=== PATIENT | female | born 1960 | race Caucasian/White ===

== ENCOUNTER → 2018-07-21 | Outpatient (CLI) | payer OTHER ==
--- NOTE | 2018-07-21 08:58 | US ---
EXAMINATION TYPE: US venous doppler duplex LE LT DATE OF EXAM: 07/21/2018 8:42 AM COMPARISON: NONE CLINICAL HISTORY: R10.11 Right upper quadrant pain. Left leg pain x couple weeks SIDE PERFORMED: Left TECHNIQUE: The lower extremity deep venous system is examined utilizing real time linear array sonog rolanda with graded compression, doppler sonography and color-flow sonography. VESSELS IMAGED: External Iliac Vein (EIV) Common Femoral Vein Deep Femoral Vein Greater Saphenous Vein * Femoral Vein Popliteal Vein Small Saphenous Vein * Proximal Calf Veins (* superficial vessels) Left Leg: Appears negative for DVT IMPRESSION: 1. Left lower extremity ultrasound negative for deep venous thrombosis.
--- NOTE | 2018-07-21 12:06 | CT ---
EXAMINATION TYPE: CT abdomen pelvis w con DATE OF EXAM: 07/21/2018 HISTORY: Recent diagnosis of uterine CA with total hysterectomy, pt c/o LLQ and pelvic pain, Lt leg p ain CT DLP: 1490mGycm Automated Exposure Control for Dose Reduction was Utilized. CONTRAST: CT scan of the abdomen and pelvis is performed with IV Contrast, patient injected with 100 mL of Isov ue 300. COMPARISON: None FINDINGS: LUNG BASES: Foci of gas in the inferior left breast are seen on superior axial images. LIVER/GB: Cholecystectomy clips are present. PANCREAS: No significant abnormality is seen. SPLEEN: No significant abnormality is seen. ADRENALS: No significant abnormality is seen. KIDNEYS: There are roughly 3 small calculi measuring 1 to 2 mm scattered throughout the right kidney. There are 3-4 small calculi measuring 3 mm or smaller scattered throughout the left kidney there is a subcentimeter low dense lesion left kidney laterally mid pole level series 7 image 31 2 small to fu rther characterize but presumed benign. There is symmetric cortical medullary uptake and excretion fr om both kidneys without evidence of hydronephrosis bilaterally. The bladder is poorly distended and t hus suboptimally evaluated. BOWEL: Oral contrast does not reach level of terminal ileum making evaluation of distal bowel subopti mal. There is no suspicious small or large bowel dilatation identified however. UTERUS/ADNEXA: Uterus is surgically absent. There are several thin-walled fluid collections in the le ft pelvis. One measures roughly 7.6 x 3.0 cm axial image 69 near course of the iliac vessels favoring postsurgical lymphocele. There are several smaller fluid collections superior to this along course o f the iliac vessels for reference axial image 62 largest anteriorly measures 4.0 x 3.2 cm. LYMPH NODES: There is suspicious low dense left periaortic mass or lymph node axial image 43 measurin g 2.5 x 2.3 cm. Inferior to this there is suspicious more hyperdense 10 x 7 mm lymph node just past b ifurcation axial image 48. OSSEOUS STRUCTURES: There is transitional type L5 vertebra is sacralized on the right there is advanc ed disc space narrowing with vacuum disc phenomenon L4-L5 level. OTHER: There is gas within the anterior abdominal wall overlying the pelvis and left abdomen presumed related to recent surgery IMPRESSION: 1. Air within the anterior abdominal pelvic wall extending into left breast is presumed postsurgical. Nonspecific fluid collections left pelvis. Differential includes postsurgical seromas, hematomas, an d/or lymphoceles. Developing abscesses cannot be excluded. Clinical correlation advised. 2. Suspicious left para-aortic adenopathy right at level of bifurcation is worrisome for metastatic n eoplasm. Correlate with pathologic grade on recent hysterectomy. PET/CT can be performed to confirm i f desired.
== END | disposition home or self-care (01) ==
LOC: RADCTMAIN 08:16
PROVIDERS: ATTEND Internal Medicine Hematology & Oncology
DX: R18.8 Other ascites (principal); M79.662 Pain in left lower leg; C54.9 Malignant neoplasm of corpus uteri, unspecified; Z90.710 Acquired absence of both cervix and uterus; Z88.5 Allergy status to narcotic agent
CPT/HCPCS: 93971; 74177; Q9967

== ENCOUNTER 2018-08-02 10:30 | Day surgery (SDC) | payer OTHER ==
[2018-07-28 13:33] VITALS: BMI 27.4
[~2018-08-02 10:30] MED LIST: Pre Op ABX Message 1 EACH MISC MISCELLANE ONE
[2018-08-02 11:00] VITALS: TEMP 97.2
[2018-08-02] MEDS ORDERED: LIDOCAINE 1% 20 ML VIAL (10MG/ML) FOR IV START INTRADERMA ONE (11:05)
[2018-08-02] MEDS ORDERED: LACTATED RINGERS 1,000 ML IV ONE (11:07)
[2018-08-02] MEDS ORDERED: ONDANSETRON 4 MG/2 ML VIAL IVP ONE (11:09)
[2018-08-02] MEDS ORDERED: DEXAMETHASONE SOD PHOSPHATE 10 MG/ML 1 ML VIAL IV ONE (11:10)
--- NOTE | 2018-08-02 11:15 | P.GSHP ---
History of Present Illness H&P Date: 08/02/18 Chief Complaint: Endometrial cancer Patient recently diagnosed with endometrial cancer. She is here today for Port- A-Cath placement. She has not had a port in the past. 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 nerve damage from hysterectomy surgery 07/04/18 History of Any Multi-Drug Resistant Organisms: None Reported Past Surgical History: Section, Cholecystectomy, Hysterectomy Additional Past Surgical History / Comment(s): removal of kidney stone/stent Past Anesthesia/Blood Transfusion Reactions: No Reported Reaction Smoking Status: Never smoker - Past Family History Sister(s) Family Medical History: Cancer Medications and Allergies Home Medications Medication Instructions Recorded Confirmed Type Acetaminophen/Diphenhydramine 1 each PO HS PRN 07/28/18 08/02/18 History [Tylenol PM Extra Strength] Gabapentin [Neurontin] 300 mg PO BID 07/28/18 08/02/18 History Losartan/Hydrochlorothiazide 1 each PO HS 07/28/18 08/02/18 History [Losartan-Hctz 50-12.5 mg Tab] Hydrocodone/Acetaminophen [[place] 1 - 2 each PO Q4HR PRN #10 tab 08/02/18 Rx 5-325] Allergies Allergy/AdvReac Type Severity Reaction Status Date / Time codeine Allergy Vomiting, Verified 08/02/18 10:54 severe headache Surgical - Exam Vital Signs Temp Pulse Resp BP Pulse Ox 97.2 F L 111 H 16 163/94 96 08/02/18 10:59 08/02/18 10:59 08/02/18 10:59 08/02/18 10:59 08/02/18 10:59 Physical exam: General: Well-developed, well-nourished HEENT: Normocephalic, sclerae nonicteric Abdomen: Nontender, nondistended Extremities: No edema Neuro: Alert and oriented Assessment and Plan (1) Endometrial cancer Narrative/Plan: Will proceed with Port-A-Cath placement at this time. Risks of bleeding, infection, DVT, pneumothorax, catheter malfunction, anesthesia related complications were discussed. The patient understands and wishes to proceed. Current Visit: Yes Status: Acute Code(s): C54.1 - MALIGNANT NEOPLASM OF ENDOMETRIUM SNOMED Code(s): 923477261
[2018-08-02] MEDS ORDERED: PROPOFOL 10 MG/ML 20 ML VIAL IV ONE (11:23)
[2018-08-02] MEDS ORDERED: LIDOCAINE 1% INJ 10MG/ML (20 ML MDV) ONE (11:23)
[2018-08-02] MEDS ORDERED: fentaNYL (PF) 50 MCG/ML 2 ML AMP ONE (11:23)
[2018-08-02] MEDS ORDERED: MIDAZOLAM 2 MG/2 ML VIAL ONE (11:23)
[2018-08-02] MEDS ORDERED: SODIUM CHLORIDE 0.9% 50 ML with ceFAZolin 2,000 MG IV ONE ×2 (11:45)
[2018-08-02] MEDS ORDERED: LIDOCAINE 1% INJ 10MG/ML (20 ML MDV) SQ ONE ×2 (11:52)
[2018-08-02] MEDS ORDERED: HYDROcodone/APAP 5-325MG 1 EACH TAB PO PRN (12:23)
[2018-08-02] MEDS ORDERED: NALOXONE 0.4 MG/ML 1 ML VIAL IV PRN (12:23)
--- NOTE | 2018-08-02 12:24 | P.OP ---
Date of Procedure: 08/02/18 Procedure(s) Performed: PREOPERATIVE DIAGNOSIS: Uterine cancer POSTOPERATIVE DIAGNOSIS: Same PROCEDURE: Port-A-Cath placement SURGEON: Deann EBL: Minimal ANESTHESIA: Sedation COMPLICATIONS: None OPERATIVE PROCEDURE: Patient was brought and placed on the operative table in the supine position. The patient was sedated per anesthesia that time. The chest and neck were prepped and draped in usual sterile fashion. The ultrasound probe was used to identify the location of the right internal jugular vein. The skin was localized with lidocaine. The Seldinger needle was advanced into the IJ under ultrasound guidance. The wire was advanced through the needle under fluoroscopic guidance into the superior vena cava. A port pocket was created in the right infraclavicular location. The catheter was tunneled from the wire entrance site to the port pocket. The port was then connected to the catheter. The dilator introducer was threaded over the guidewire. The guidewire and dilator were then removed. The catheter was advanced through the introducer and introducer was then removed. The tip was seen to be in the right atrial junction. Port was flushed with both saline and a Hep-Lock solution. There was good flow both in and out of the port. The port was sutured in underlying tissues using 3-0 silk sutures. The subcutaneous tissues were reapproximated using 3-0 Vicryl sutures and the skin at both locations using 4-0 Monocryl sutures. Steri-Strips and sterile dressings then applied. DISPOSITION: Stable to recovery room
--- NOTE | 2018-08-02 13:06 | FL ---
Fluoroscopy History: PORT A CATH PORT A CATH. 3 sec FL time. [address] Zacarias
--- NOTE | 2018-08-02 13:07 | XR ---
EXAMINATION TYPE: XR chest 1V confirm line [facility] DATE OF EXAM: 08/02/2018 HISTORY: Shortness of breath. COMPARISON: None. TECHNIQUE: Single view of the chest is submitted. FINDINGS: The right IJ central venous line demonstrates its distal tip overlying the SVC. No evidence for pneum othorax. Demonstrated are scattered senescent parenchymal change. There is no evidence for focal infiltrate. The heart is stable. Hilar and mediastinal structures are within normal limits. Degenerative changes are seen of the dorsal spine. IMPRESSION: 1. Chronic changes without evidence for acute pulmonary disease. Central venous line as noted.
[2018-08-02 13:08] VITALS: PULSE 94
[2018-08-02 13:16] VITALS: BP 153/96; RESP 16
== END 2018-08-02 13:42 | disposition home or self-care (01) ==
LOC: OR 10:30
PROVIDERS: ATTEND Surgery
DX: C54.1 Malignant neoplasm of endometrium (principal); I10 Essential (primary) hypertension; Z85.42 Personal history of malignant neoplasm of other parts of uterus; Z90.710 Acquired absence of both cervix and uterus; Z90.49 Acquired absence of other specified parts of digestive tract; Z79.899 Other long term (current) drug therapy; Z88.5 Allergy status to narcotic agent; Z87.442 Personal history of urinary calculi
CPT/HCPCS: 77001; 36561; C1788; J2250; J1100; J2405; J2001; J3010; J0690; J2704

== ENCOUNTER → 2018-09-12 | Outpatient (CLI) | payer OTHER ==
--- NOTE | 2018-09-12 15:32 | US ---
EXAMINATION TYPE: US venous doppler duplex LE LT DATE OF EXAM: 09/12/2018 3:00 PM COMPARISON: NONE CLINICAL HISTORY: M79.662,R22.42 PAIN AND SWELLING LT LOWER LIMB. SIDE PERFORMED: Left TECHNIQUE: The lower extremity deep venous system is examined utilizing real time linear array sonog rolanda with graded compression, doppler sonography and color-flow sonography. VESSELS IMAGED: External Iliac Vein (EIV) Common Femoral Vein Deep Femoral Vein Greater Saphenous Vein * Femoral Vein Popliteal Vein Small Saphenous Vein * Proximal Calf Veins (* superficial vessels) Left Leg: Negative for DVT IMPRESSION: 1. Left lower extremity ultrasound negative for deep venous thrombosis.
== END | disposition home or self-care (01) ==
LOC: RADUSWWP 14:35
PROVIDERS: ATTEND Internal Medicine Hematology & Oncology
DX: R22.42 Localized swelling, mass and lump, left lower limb (principal); M79.662 Pain in left lower leg; Z88.5 Allergy status to narcotic agent

== ENCOUNTER → 2019-02-05 | Outpatient (CLI) | payer OTHER ==
[2019-02-05 14:27] LABS: Blood Urea Nitrogen 14 mg/dL (7-17)
--- NOTE | 2019-02-05 16:52 | CT ---
EXAMINATION TYPE: CT abdomen pelvis w con DATE OF EXAM: 02/05/2019 COMPARISON: Prior CT 07/21/2018 HISTORY: Endometrial cancer. CT DLP: 677.2 mGycm Automated exposure control for dose reduction was used. TECHNIQUE: Helical acquisition of images from the lung bases through the pelvis have been completed. CONTRAST: Performed with Oral Contrast and with IV Contrast, patient injected with 100ml mL of Isovue 300. FINDINGS: There is interval resolution of the subcutaneous emphysema. LUNG BASES: Possible nodular density on axial image 1 is incompletely evaluated right lower lobe, sharonda cified nodule in the lingula AORTA: No significant abnormality is appreciated. LIVER/GB: Ration is post cholecystectomy. Liver shows a stable appearance, liver is enlarged as on pr ior. PANCREAS: No significant abnormality is seen. SPLEEN: No significant abnormality is seen. ADRENALS: No significant abnormality is seen. KIDNEYS: Stable, low dense focus persists in the left kidney is subcentimeter in size, no hydronephro sis, punctate nonobstructive calculi again noted REPRODUCTIVE ORGANS: Not seen BOWEL: There is an intussusception noted in the left upper quadrant, some small bowel wall thickenin g is present, no evident obstruction. In the splenic flexure there is some nonspecific colonic wall t hickening not seen on prior exam. FREE AIR: No Free Air visible. ASCITES: None visible. PELVIC ADENOPATHY: The cystic focus in the left hemipelvis is no longer seen, some minimal residual inflammatory change suspected. RETROPERITONEAL ADENOPATHY: No Retroperitoneal Adenopathy visible. Interval resolution of low dense retroperitoneal FOCUS. URINARY BLADDER: No significant abnormality is seen. OSSEOUS STRUCTURES: No significant abnormality is seen. IMPRESSION: COLONIC WALL THICKENING SPLENIC FLEXURE IS INDETERMINATE, IF BOWEL SURVEILLANCE HAS NOT BEEN PERFORME D THEN IT SHOULD BE CONSIDERED. INTERVAL IMPROVEMENT IN PELVIC LOW DENSE FOCUS IN THE LEFT PELVIC JUANA EWALL. PROBABLE TRANSIENT INTUSSUSCEPTION AXIAL IMAGE 32. THERE MAY BE AN UNDERLYING ENTERITIS. INDET ERMINATE POSSIBLE PULMONARY NODULE. POSTOP CHANGES.
== END | disposition home or self-care (01) ==
LOC: RADPROMAIN 13:42
PROVIDERS: ATTEND Internal Medicine Hematology & Oncology
DX: C54.9 Malignant neoplasm of corpus uteri, unspecified (principal); Z88.5 Allergy status to narcotic agent
CPT/HCPCS: 82565; 84520; 74177; 36415; J1642; Q9967

== ENCOUNTER → 2019-05-28 | Outpatient (CLI) | payer OTHER ==
--- NOTE | 2019-05-28 16:34 | CT ---
EXAMINATION TYPE: CT abdomen pelvis w con DATE OF EXAM: 05/28/2019 COMPARISON: 02/05/2019 and 07/21/2018. HISTORY: 58-year-old female follow-up Endometrial CA TECHNIQUE: Contiguous axial scanning of the abdomen and pelvis following administration of 100 ml Iso maddie 300 IV contrast. Delayed images through the kidneys and coronal/sagittal reconstructions perform ed. CT DLP: 980 mGycm Automated exposure control for dose reduction was used. FINDINGS: Heart normal size without pericardial effusion. Calcific granuloma left base. 4 mm peripheral right b asilar pulmonary nodule unchanged from 02/05/2019. No pleural effusion. Hypervascular blush right liver lobe infiltrates on the delayed kidney images suggesting probable vas cular shunting or flash filling hemangioma. This was present back on 07/21/2018 as well. Portal venous system is patent. No biliary ductal dilatation. Cholecystectomy clips. Adrenal glands, left kidney, spleen, and pancreas appear within normal limits. 4 mm nonobstructive right renal calculus. No dilated small bowel, free fluid, or free air. Scattered prominent but nonenlarged mesenteric lymph nodes measure up to 5 mm, axial image 39. Minimal strandy density remains along the left common iliac chain at the site of previous lymphadenop athy. Stable mildly ectatic left common iliac artery at 1.6 cm. Right common iliac chain lymph node measures 1 cm versus 6 mm on 02/05/2019 and can BE reassessed at ort interval follow-up. No dilated small bowel, free fluid, or free air. Oral contrast has progressed to the rectum. Stable strandy densities in the pelvis probably postsurgical in etiology. Uterus surgically absent. An elliptical fluid collection along the left pelvic sidewall measures 3.6 x 1.4 cm, unchanged from . Otherwise, no pelvic lymphadenopathy seen. Bladder partially distended. Bones: Right L5 hemisacralization. No osseous destructive process. Degenerative disc disease L4-L5. IMPRESSION: 1. A RIGHT COMMON ILIAC CHAIN LYMPH NODE MEASURES 1 CM VERSUS 6 MM, PREVIOUSLY. IT IS NONSPECIFIC AND SHOULD BE REASSESSED AT SHORT INTERVAL FOLLOW-UP. 2. STATUS POST HYSTERECTOMY. SOME STABLE STRANDY DENSITIES IN THE PELVIS PROBABLY ON A POSTSURGICAL/P OSTTREATMENT BASIS. 3. A 3.6 X 1.4 CM ELLIPTICAL FLUID COLLECTION ALONG THE LEFT PELVIC SIDEWALL IS UNCHANGED FROM 02/06/20 19, PROBABLE RESIDUAL LYMPHOCELE.
== END | disposition home or self-care (01) ==
LOC: RADPROMAIN 06:50
PROVIDERS: ATTEND Internal Medicine Hematology & Oncology
DX: Z03.89 Encounter for observation for other suspected diseases and conditions ruled out (principal); C54.1 Malignant neoplasm of endometrium; Z90.710 Acquired absence of both cervix and uterus; Z95.828 Presence of other vascular implants and grafts; Z88.5 Allergy status to narcotic agent
CPT/HCPCS: 74177; J1642; Q9967

== ENCOUNTER → 2019-11-21 | Outpatient (CLI) | payer BC ==
--- NOTE | 2019-11-21 11:04 | CT ---
EXAMINATION TYPE: CT abdomen pelvis w con DATE OF EXAM: 11/21/2019 HISTORY: Endometrial cancer CT DLP: 1163.5mGycm Automated Exposure Control for Dose Reduction was Utilized. CONTRAST: CT scan of the abdomen and pelvis is performed with oral and with IV Contrast, patient injected with 100 mL of Isovue 300. COMPARISON: CT abdomen and pelvis May 28, 2019 and older CTs FINDINGS: LUNG BASES: No significant abnormality is appreciated. LIVER/GB: Multiple cholecystectomy clips are redemonstrated. PANCREAS: No significant abnormality is seen. SPLEEN: No significant abnormality is seen. ADRENALS: No significant abnormality is seen. KIDNEYS: Previously visualized 4 mm nonobstructing upper pole right renal calculus less well-seen on current study, may have passed in the interval. Correlate clinically. Symmetric cortical medullary up take and excretion from both kidneys is seen with subcentimeter low-density lesion mid pole laterally left kidney image 33 series 11 presumed 9. Mild left-sided hydroureter redemonstrated without hydron ephrosis. BOWEL: Oral contrast reaches level of rectum. Areas of mild wall thickening throughout the left and s igmoid colon and rectum remain present. No suspicious small or large bowel dilatation. UTERUS/ADNEXA: Uterus is surgically absent. LYMPH NODES: No new greater than 1cm abdominal or pelvic lymph nodes are appreciated. Stable elongate d low dense or fluid collection left pelvic sidewall axial image 69 measuring roughly 3.5 x 1 cm. Fav or small lymphocele. A right common iliac chain lymph node slightly prominent on prior study image 52 is now smaller in size measuring roughly 4 to 5 mm axial image 51 on current study. OSSEOUS STRUCTURES: Persistent sacralized right L5 segment. Persistent moderate to severe disc space narrowing L4-L5 level. OTHER: Moderate plaque of the aorta extends into branch vessels. IMPRESSION: No new mass or adenopathy to suggest metastatic neoplastic recurrence.
== END | disposition home or self-care (01) ==
LOC: RADPROMAIN 07:54
PROVIDERS: ATTEND Internal Medicine Hematology & Oncology
DX: C54.9 Malignant neoplasm of corpus uteri, unspecified (principal); Z88.5 Allergy status to narcotic agent
CPT/HCPCS: 74177; J1642; Q9967 ×2

== ENCOUNTER → 2020-11-17 | Outpatient (CLI) | payer BC ==
--- NOTE | 2020-11-17 11:41 | CT ---
EXAMINATION TYPE: CT abdomen pelvis w con DATE OF EXAM: 11/17/2020 HISTORY: Endometrial cancer progress study. CT DLP: 946 mGycm Automated Exposure Control for Dose Reduction was Utilized. CONTRAST: CT scan of the abdomen and pelvis is performed with oral and with IV Contrast, patient injected with 100 mL of Isovue 300. COMPARISON: CT November 21, 2019 FINDINGS: LUNG BASES: Stable 5 mm left basilar calcified nodule or granuloma axial image 6. LIVER/GB: Cholecystectomy clips are redemonstrated. PANCREAS: No significant abnormality is seen. SPLEEN: No significant abnormality is seen. ADRENALS: No significant abnormality is seen. KIDNEYS: Symmetric cortical medullary uptake and excretion without hydronephrosis seen bilaterally. S table subcentimeter low dense round lesion lateral left kidney image 32 series 5 presumed benign. BOWEL: Oral contrast reaches level of the transverse colon. No suspicious small or large bowel dilata tion. Normal-appearing appendix seen from cecum in the right upper pelvis. UTERUS/ADNEXA: Uterus is surgically absent. Less well seen proximally 3 x 1 cm ovoid low dense or tin y thin-walled fluid collection left pelvic sidewall approximately 67 favoring small lymphocele. LYMPH NODES: No new greater than 1cm abdominal or pelvic lymph nodes are appreciated. Stable 4 to 5 m m right common iliac chain lymph node on axial image 52. OSSEOUS STRUCTURES: Partially sacralized right L5 segment redemonstrated. Persistent moderate to amairani re disc space narrowing and vacuum disc phenomenon L4-L5 level. OTHER: Persistent moderate calcified plaque of the aorta extending to iliac branch vessels. IMPRESSION: No suspicious new or enlarging mass or adenopathy to suggest neoplastic recurrence.
== END | disposition home or self-care (01) ==
LOC: RADCTMAIN 09:23
PROVIDERS: ATTEND Internal Medicine Hematology & Oncology
DX: C54.9 Malignant neoplasm of corpus uteri, unspecified (principal); Z88.5 Allergy status to narcotic agent
CPT/HCPCS: 74177; Q9967